=== PATIENT | female | born 1970 | race Hispanic/Latino ===

== ENCOUNTER 2016-11-26 20:47 | Observation (INO) | payer OTHER ==
[~2016-11-26] VITALS: Ht 144.8 cm; Wt 56.0 kg
[~2016-11-26 20:47] MED LIST: AMLO10TA3 PO; AMOX500T2 PO; CLR500T PO; HYDR-3797 PO; METO25TA6 PO; PANT40TA3 PO; PRAZ2CAP2 PO; PROM25TA14 PO; QUET25TA73 PO
[2016-11-26 20:59] VITALS: BP 157/100; PULSE 88; RESP 15; O2SAT 96
--- NOTE | 2016-11-26 22:28 | ED.REPORT ---
HPI-NVD Date of Service Nov 26, 2016 ED Provider: Vinh Souza MD Pt is a 46 y/o female with a history of bipolar disorder and recent hospital admission for gastritis with positive EGD for H. pylori who presents to the ED due to nausea, vomiting, and abdominal pain for the past several hours. Pt is accompanied by who gives most of the PMHx. Pt is withdrawn and curled up in a ball on the gurney Pt c/o associated subjective fever, chills, diaphoresis, diarrhea, and nausea. She reports having similar symptoms to when she was recently admitted to [facility]. Patient was treated with triple therapy for H. Pylori on discharge and took all medications as prescribed. She took Promethazine for nausea prior to arrival, with no improvement of symptoms. Nursing Notes Stated Complaint: VOMITING Chief Complaint: General Complaint Nursing Notes Reviewed: Yes (Valutao not reconciled) Allergies: Coded Allergies: hydrocodone (Verified Allergy, Intermediate, itch, 11/26/16) Scheduled Amlodipine (Amlodipine) 10 Mg Tablet 10 MG PO DAILY Amoxicillin (Amoxicillin) 500 Mg Tablet 1,000 MG PO BID Clarithromycin (Biaxin) 500 Mg Tablet 500 MG PO BID Metoprolol Tartrate (Metoprolol Tartrate) 25 Mg Tablet 50 MG PO BID Pantoprazole DR (Pantoprazole DR) 40 Mg Tablet.dr 40 MG PO BID Prazosin (Prazosin) 2 Mg Capsule 2 MG PO HS Quetiapine Fumarate (Quetiapine Fumarate) 25 Mg Tablet 25 MG PO BID Scheduled PRN Hydroxyzine Pamoate (HydrOXYzine Pamoate) 25 Mg Capsule 25 MG PO TID PRN PRN For Pain Promethazine (Promethazine) 25 Mg Tablet 25 MG PO q6 hours PRN PRN For Nausea General Time Seen by MD: 22:22 Chief Complaint Vomiting Hx Obtained From: Patient, Spouse Arrived By: Walk-in Onset Occurred: 1 - 4 hours ago Symptom Duration: Since onset Severity: Current: Mild Severity: Maximum: Mild Recent Healthcare: Recent hospitalization Past Medical History Past Medical History Admit for N/V 10/2016 -> mild gastritis/duodenitis, EGD results consistent with H. pylori. S/p treatment with triple therapy (clarithromycin, amoxicillin, Protonix) Bipolar /Schizophrenia Reports: Hypertension Past Surgical History EGD 10/2016 Smoking History Never Smoker Social History Alcohol Use: Denies alcohol use Drug Use: THC Other Social History: Good social support, , Local resident Ambulatory Status Independent Review of Systems Constitutional: Reports: Chills, Fever GI: Reports: Abdominal pain, Diarrhea, Nausea, Vomiting Skin: Reports Diaphoresis Complete sys rev & neg: except as marked. Physical Exam Initial Vital Signs Vital Signs (First) Date Time Temp Pulse Resp B/P Pulse Ox O2 Delivery O2 Flow Rate FiO2 11/26/16 20:59 36.8 88 15 157/100 96 Room Air Initial VS: Reviewed, Vital signs normal Head / Eyes: Atraumatic, Normocephalic, PERRL ENT: Mucous membranes moist, Conjunctiva normal, No scleral icterus Neck: Supple, Non-tender, Full range of motion Respiratory: Breath sounds normal, Clear to auscultation, No respiratory distress Cardiovascular: Regular rate & rhythm, Heart sounds normal, Intact distal pulses Extremities: Vascular intact, Neuro intact, No swelling, No tenderness Skin: Warm, Dry, No cyanosis Neurologic: Alert, Oriented, Nonfocal General/Constitutional: Awake, Alert Behavior: Positive: Withdrawn less than engaged curled up in a ball, doesn't want to talk much of hx is from spouse moans intermittently Abdomen: Soft, Non-tender Skin: Warm Color / Condition: Positive: Diaphoresis present (mildly) Re-Eval/Medical Decision Med Decision/Clinical Course This is a 46-year-old female who is admitted in October for intractable nausea and vomiting, underwent EGD at that time noted some gastropathy and mild duodenitis for PPI therapy was recommended but no other dangerous or definitive cause for the intractable nausea vomiting was identified at that time. (She was H Pyolori + and was treated with triple therapy) She reports she has been doing okay, but tonight had recurrence of the identical symptoms with intractable nausea and vomiting countless times there is a little bit of blood in her emesis here, mixed with clear yellow bile, she just recently had her consistent to have bleeding toothache causing the trace amount of blood ( arguing against a Anne-Alaniz). Since vitals normal's but when I go in the room she is cold up in a position, she appears fatigued and does not really engage in conversation. Mostly history is from the . Reports she has been compliant with the PPI therapy and is on a multitude of medications. Her abdomen is nontender, without clinical findings and necessitate emergent repeat imaging at this time. (She did undergo CT imaging previously last month for this which was negative) At this point an IV is being placed and lab tests ordered. An initial treatment with IV fluids and anti-emetics as indicated. The patient is being turned over to Dr. Palencia at change of shift pending results and re-eval. Source of Hx: Old records Re-Evaluation/Progress : Time of Eval: 23:36 Re-Evaluation/Progress Note: Confirmed that the patient finished triple therapy for H. Pylori. Informed patient of transfer of care to Dr. Palencia. Discharge & Departure Shift Change Sign-Out Patient Care Transferred: Yes Discussed Complaint(s): Yes Laboratory Evaluation: Ordered, not yet done Impression: Primary Impression: Nausea & vomiting Vomiting type: unspecified Vomiting Intractability: non-intractable Qualified Code: R11.2 - Nausea with vomiting, unspecified Discharge Condition All VS Reviewed: Yes Condition: Stable Referrals: Bolivar Norman MD (PCP) Care Transferred to: Dr. Palencia Care Transferred at: 00:00 Scribe Attestation Portion of this note were transcribed by Jud Mello and Srinivasan Freedman. I, Dr. Souza, personally performed the history, physcial exam, and medical decision- making: I reviewed and confirmed the accuracy for the information in the transcribed note. Signed by: ne Lopez, 11/26/16 [id number] Signed by: Ne Graves, 11/26/2016 [id number] copies to: Bolivar Norman MD, Matthew F MD Nov 26, 2016 22:28 SRINIVASAN FREEDMAN Nov 26, 2016 22:53 Jud Mello Nov 26, 2016 23:37
[2016-11-26] MEDS ORDERED: Ondansetron 2 mg/mL 2 mL Inj IVPUSH ONE (22:40)
[2016-11-26] MEDS: Promethazine Inj 25 MG in Dextrose 5%-Pha MIX 50 ML IV ONE (22:40)
[2016-11-26] MEDS ORDERED: 0.9% Sodium Chloride 1,000 ML IV ONE (22:40)
[2016-11-26] MEDS ORDERED: Promethazine 25 mg/mL Inj IM ONE (23:50)
[2016-11-27 01:04] LABS: BASOPHILS % (AUTO) 0.2 % (0-3); EOSINOPHILS % (AUTO) 0.1 % (0-5); MONOCYTES % (AUTO) 5.5 % (4-12); Mean Corpuscular Hemoglobin 26.8 pg (27.0-35.0); Mean Corpuscular Volume 79.7 fL (81-100); NEUTROPHILS % (AUTO) 86.2 % (40-74); Platelet Count 246 bil/L (150-400)
[2016-11-27 02:12] LABS: Lipase 24 U/L (13-60)
[2016-11-27] MEDS ORDERED: MetoCLOpramide 5 mg/mL 2 mL Inj IVPUSH ONE (02:20)
[2016-11-27] MEDS: 0.9% Sodium Chloride 1,000 ML IV ONE ×2 (02:27→02:54)
[2016-11-27] MEDS: Promethazine Inj 25 MG in Dextrose 5%-Pha MIX 50 ML IV ONE (02:53)
[2016-11-27 03:29] LABS: APPEARANCE,URINE CLEAR (CLEAR,HAZY); COLOR,URINE STRAW (YELLOW); OCCULT BLOOD,URINE SMALL (NEGATIVE); UROBILINOGEN,URINE NORMAL (NORMAL)
[2016-11-27] MEDS ORDERED: Haloperidol 5 mg/mL Inj IVPUSH ONE ×2 (05:25→08:45)
[2016-11-27] MEDS ORDERED: LORazepam 1 mg Tablet PO ONE (05:25)
[2016-11-27 08:18] VITALS: BP 141/80; PULSE 103; O2SAT 99
--- NOTE | 2016-11-27 08:32 | DRSVH ---
PROCEDURE: US ABDOMEN INDICATIONS: abd pain, elev WBC and transaminases TECHNIQUE: Real-time scanning was performed of the abdominal and retroperitoneal organs, with image documentatio n. COMPARISON: CT abdomen and pelvis 10/30/2016. FINDINGS: Liver length: 12.74 cm Gallbladder Wall Thickness: N./A. CHD: Not reported CBD: 5.90 mm Spleen length: 6.90 cm Right kidney length: 11.37 cm Left kidney length: 10.95 cm Aorta(Proximal): 2.04 cm Aorta(Mid): 1.63 cm Aorta(Distal): 1.46 cm RCIA: 7.60 mm LCIA: 1.02 cm Liver: Liver is normal in size and mildly hyperechoic in echotexture. Gallbladder: Gallbladder is not identified and is surgically absent. Biliary ducts: Intrahepatic bile ducts are non-dilated. Extrahepatic bile duct caliber is normal. Normal is 6-7 mm or less in diameter, or 10 mm or less post-cholecystectomy. Pancreas: Visualized portions of the pancreas are sonographically normal. Tail is obscured. Spleen: Spleen is normal in size and homogeneous in echotexture. Kidneys: Kidneys are normal in size and echotexture. No hydronephrosis or nephrolithiasis. No kellen d masses. There is a trace of subcapsular fluid on the right. Aorta: Visualized aorta is normal in caliber at less than 3 cm. Iliacs: Proximal common iliac arteries are normal in caliber at less than 2.5 cm. IVC: Intrahepatic inferior vena cava is patent. Miscellaneous: No free abdominal fluid. IMPRESSION: 1. Mild hepatic steatosis. 2. Gallbladder is surgically absent as shown on prior CT. 3. Common hepatic duct is not seen and the tail of pancreas is obscured. 4. Trace of subcapsular fluid in the right kidney is nonspecific and indeterminate for chronicity. Dictated by: Dino Espinoza M.D. on 11/27/2016 at 8:31 Approved by: Dino Espinoza M.D. on 11/27/2016 at 8:31
[2016-11-27] MEDS ORDERED: Alum-Mag Hydrox-Simeth 30 mL Suspension PO PRN (08:55)
[2016-11-27] MEDS ORDERED: OXYC1TAB24 PO (10:02)
[2016-11-27] MEDS ORDERED: IBUP200C PO (10:02)
[2016-11-27] MEDS ORDERED: DIPH25CA6 PO (10:02)
[2016-11-27 10:24] VITALS: BP 158/91; PULSE 106; RESP 16; O2SAT 99
--- NOTE | 2016-11-27 12:10 | NUR ---
[place] [facility] [place] 1030 [place] [facility] [place] Report received from Jessica DOTSON. NS started at 100ml/hr, patient quiet, awake to have one brief bout of nausea with emesis (dark tea color 100mls) and is now back resting quietly in bed. Patient denies pain, and shortness of breath. Patient to be NPO, med rec and admit completed by admit nurse Mouna DOTSON. Patient oriented to room and hospital polices/services. Addendum: 11/27/16 at 1630 by RAMONITA GENTILE RN Patient has had three more bouts of emesis total volume 200mls dark green/brown fluid, Zofran given and Toroidal for abdominal pain. Patient is resting quietly in bed now. Washcloth and warm blankets given. Addendum: 11/27/16 at 1643 by RAMONITA GENTILE RN WBC 16.1, patient report to taking hydrocodone for tooth repair, may be cause of n/v. Allergy to this medicine.
[2016-11-27] MEDS: 0.9% Sodium Chloride 1,000 ML IV SCH ×2 (12:24→19:55)
[2016-11-27] MEDS ORDERED: MetoCLOpramide 5 mg/mL 2 mL Inj IVPUSH PRN (14:25)
[2016-11-27] MEDS ORDERED: Polyethylene Glycol (PEG) 17 Gm Powder PO PRN (14:25)
[2016-11-27] MEDS: Ondansetron 2 mg/mL 2 mL Inj IVPUSH PRN ×2 (15:47→19:55)
--- NOTE | 2016-11-27 16:57 | NUR ---
TOOK OVER PATIENT CARE 8031
[2016-11-27] MEDS ORDERED: hydrOXYzine Pamoate 25 mg Capsule PO PRN (18:05)
[2016-11-27] MEDS ORDERED: diphenhydrAMINE 25 mg Capsule PO PRN (18:05)
--- NOTE | 2016-11-27 18:09 | PCM.HPMED ---
Subjective Date of Service Nov 27, 2016 Primary Provider: Admitting Physician: Kameron Anthony DO Primary Care Physician: Bolivar Norman MD Attending Physician: Kameron Anthony DO Chief Complaint: Nausea vomiting History of Present Illness: This is a 46-year-old patient well-known to me from previous admission. She has a recent history of H. pylori, and a history of bipolar/schizophrenia. She presented to the emergency room yesterday with nausea vomiting and spent a prolonged period in the ER where her symptoms continued. Due to intractable nausea, the hospitalists were contacted for admission. She had recently had some dental work done with teeth being pulled and was placed on oxycodone. Shortly after taking the oxycodone she started experiencing nausea vomiting which was unrelenting so she presented to the emergency room for evaluation. She had taken promethazine at home. She had a previous admission for the same, eventually she had an EGD which showed gastritis and she was diagnosed with H. pylori. This was treated and her symptoms improved. She has been taking her medications as prescribed and was doing well until the last day. She states that she has had ongoing left flank pain where she has been diagnosed with a nonobstructing renal stone. She has not been taking any pain medications for this. She has had some minor abdominal pain, no diarrhea or constipation. No fevers or chills, no headaches or dizziness cough congestion, chest pain or shortness of breath. She does state that within a few days of discharge she did return to smoking marijuana. We had previously discussed marijuana as a cause of cyclic vomiting. Review of Systems: As in history of present illness otherwise negative Allergies Coded Allergies: hydrocodone (Verified Allergy, Severe, Hives, 11/27/16) Home Medications Amlodipine (Amlodipine) 10 Mg Tablet 10 MG PO DAILY Amoxicillin (Amoxicillin) 500 Mg Tablet 1,000 MG PO BID Clarithromycin (Biaxin) 500 Mg Tablet 500 MG PO BID Metoprolol Tartrate (Metoprolol Tartrate) 25 Mg Tablet 50 MG PO BID Pantoprazole DR (Pantoprazole DR) 40 Mg Tablet.dr 40 MG PO BID Prazosin (Prazosin) 2 Mg Capsule 2 MG PO HS Quetiapine Fumarate (Quetiapine Fumarate) 25 Mg Tablet 25 MG PO BID Scheduled PRN Hydroxyzine Pamoate (HydrOXYzine Pamoate) 25 Mg Capsule 25 MG PO TID PRN PRN For Pain Promethazine (Promethazine) 25 Mg Tablet 25 MG PO q6 hours PRN PRN For Nausea PMH Gastritis, H. pylori Bipolar Schizophrenia Surgical History Cholecystectomy, appendectomy, EGD 1 month prior Family History Father with diabetes, otherwise noncontributory Social History Hx Alcohol Use: No Hx Substance Use: Yes (Marijuana) Smoking Status: Never Smoker Living Arrangement: Homeless Exam Vital Signs Vital Sign - Last Date Time Temp Pulse Resp B/P Pulse Ox O2 Delivery O2 Flow Rate FiO2 11/27/16 10:24 36.8 106 16 158/91 99 Room Air Intake and Output 11/26/16 11/26/16 11/27/16 Cumulative From/Thru 15:00 23:00 07:00 11/26/16 20:59 - 11/27/16 02:28 Intake Total 2000 ml 2000 ml Balance 2000 ml 2000 ml Intake IV Total 2000 ml 2000 ml Exam General: Alert, Oriented X3, mild to moderate distress. Actively vomiting during my exam Head: Normocephalic, atraumatic Eyes: JEET, EOMI, no scleral Icterus Oropharynx: pink moist oral mucosa Neck: supple, trachea midline, no adenopathy Chest: clear to auscultation B/L, no wheezing rales or rhonchi Heart: Regular rate and rhythm. Normal S1, S2, no murmurs noted Abdomen: soft, mild tenderness to palpation. Bowel sounds are normoactive. No guarding or rebound. Extremities: no cyanosis, clubbing or edema. No acute joint inflammation. Skin: no acute rashes or lesions noted Neuro: Cranial nerves II-XII intact, no focal findings. Psych: Anxious over her condition. Lab and Diagnostics Result Diagram: 11/27/16 0005 11/27/16 0005 X-Rays, CTs and MRIs Ultrasound abdomen 11/27/2016 IMPRESSION: 1. Mild hepatic steatosis. 2. Gallbladder is surgically absent as shown on prior CT. 3. Common hepatic duct is not seen and the tail of pancreas is obscured. 4. Trace of subcapsular fluid in the right kidney is nonspecific and indeterminate for chronicity. Assessment & Plan This is a 46-year-old female with a past medical history of bipolar, schizophrenia. Recent diagnosis of H. pylori gastritis currently being treated. She apparently is likely having a bad reaction to oxycodone which correlates with the timing of the onset of symptoms. She also may have cyclic vomiting due to marijuana use. Intractable nausea and vomiting: -Appears to be secondary to adverse reaction to oxycodone -May also have cyclic vomiting due to continued marijuana use or ongoing gastritis, though thought less likely. -Continue Zofran when necessary, she has responded well in the past to Reglan. I will order this as well. -Ativan if the above interventions are unsuccessful. -Supportive care, IV fluids -She received Haldol, Benadryl, Zofran in the emergency room Gastritis/H. pylori: -Currently undergoing treatment, believe her antibiotic should be finished. Continue Protonix Bipolar/schizophrenia: -Continue Seroquel Hypertension: -Continue metoprolol, prazosin, amlodipine Nonobstructing renal stone: Present on admission -Pain control with Toradol, avoid narcotics -Ultrasound shows no obstructing stone, no hydronephrosis. CODE STATUS: Full code DVT prophylaxis: SCDs Disposition: Admit to observation, discharge in 1-2 days pending hospital course. Time spent 60 minutes spent admitting this patient Kameron Anthony DO Nov 27, 2016 14:39
[2016-11-27 20:06] VITALS: BP 130/87; PULSE 88; RESP 20; O2SAT 98
--- NOTE | 2016-11-27 22:05 | NUR ---
GI Pt had some nausea earlier this evening. Given IV zofran per MD order Pt able to tolerate PO meds and sips of sprite. Will cont to monitor
[2016-11-28 03:53] VITALS: BP 123/82; PULSE 71; RESP 20; O2SAT 96
[2016-11-28] MEDS: 0.9% Sodium Chloride 1,000 ML IV SCH ×2 (04:20→14:55)
[2016-11-28] MEDS ORDERED: Pantoprazole 4 mg/mL 10 mL Inj IVPUSH SCH (07:30)
[2016-11-28] MEDS: Ondansetron 2 mg/mL 2 mL Inj IVPUSH PRN (08:21)
[2016-11-28 08:53] VITALS: BP 143/96; PULSE 71; RESP 20; O2SAT 99
[2016-11-28 13:18] VITALS: BP 129/86; PULSE 62; RESP 20; O2SAT 96
[2016-11-28 13:29] LABS: BASOPHILS % (AUTO) 0.3 % (0-3); EOSINOPHILS % (AUTO) 0.9 % (0-5); MONOCYTES % (AUTO) 8.7 % (4-12); Mean Corpuscular Hemoglobin 26.7 pg (27.0-35.0); Mean Corpuscular Volume 80.3 fL (81-100); NEUTROPHILS % (AUTO) 69.3 % (40-74); Platelet Count 214 bil/L (150-400)
--- NOTE | 2016-11-28 14:14 | NUR ---
Data & Assessment: EMR reviewed. Patient is a is a 46y/o female that admitted for Intractable Vomiting. Patients insurance is [employer]. Patients primary care physician is Dr. Bolivar Norman. Patients readmission score is 5. Patient lived in [place] independently prior to admission. Patient is currently standby assist in the room. Patient will discharge home when medically stable. Patient does not have any discharge needs identified at this time. SW will continue to follow. Plan: Patient will discharge home when medically stable. Patient does not have discharge needs identified at this time. SW will continue to follow. Hui Sorenson, [place], [place]
[2016-11-28] MEDS ORDERED: PROM25TA14 PO (14:21)
--- NOTE | 2016-11-28 14:23 | PCM.DIMED ---
Discharge Instructions Date of Service Nov 28, 2016 Dates of Hospitalization Nov 27, 2016 at 08:46 Discharge Diagnosis Discharge Diagnosis intractable nausea and vomiting - improved. Adverse medication reaction to oxycodone. Diet No restrictions Activity No restrictions Call your provider Fever or Chills, Shortness of breath, Chest pain, Vomitting, Weakness ( unilateral) Patient Instructions Follow-up with PCP in: 1 week Kameron Anthony DO Nov 28, 2016 14:23
--- NOTE | 2016-11-28 15:52 | NUR ---
Discharge Patient left floor at 1540. All d/c information discussed and understood, including medications and follow up appointments. Patient given prescription for promethazine. IV d/c'd intact. All belongings left with patient.
--- NOTE | 2016-11-28 21:36 | PCM.DC.MED ---
Discharge Summary Date of Service Nov 28, 2016 Dates of Hospitalization Date of Hospital Admission Nov 27, 2016 at 08:46 Date of Discharge: Nov 28, 2016 Providers: Admitting Physician: Rachell Anthony DO Primary Care Physician: Bolivar Norman MD Attending Physician: Rachell Anthony DO Diagnosis at Time of Discharge Diagnosis at Time of Discharge intractable nausea and vomiting - improved. Adverse medication reaction to oxycodone. Procedures XRay, CTs & MRIs Ultrasound abdomen 11/27/2016 IMPRESSION: 1. Mild hepatic steatosis. 2. Gallbladder is surgically absent as shown on prior CT. 3. Common hepatic duct is not seen and the tail of pancreas is obscured. 4. Trace of subcapsular fluid in the right kidney is nonspecific and indeterminate for chronicity. Brief History This is a 46-year-old patient well-known to me from previous admission. She has a recent history of H. pylori, and a history of bipolar/schizophrenia. She presented to the emergency room yesterday with nausea vomiting and spent a prolonged period in the ER where her symptoms continued. Due to intractable nausea, the hospitalists were contacted for admission. She had recently had some dental work done with teeth being pulled and was placed on oxycodone. Shortly after taking the oxycodone she started experiencing nausea vomiting which was unrelenting so she presented to the emergency room for evaluation. She had taken promethazine at home. She had a previous admission for the same, eventually she had an EGD which showed gastritis and she was diagnosed with H. pylori. This was treated and her symptoms improved. She has been taking her medications as prescribed and was doing well until the last day. She states that she has had ongoing left flank pain where she has been diagnosed with a nonobstructing renal stone. She has not been taking any pain medications for this. She has had some minor abdominal pain, no diarrhea or constipation. No fevers or chills, no headaches or dizziness cough congestion, chest pain or shortness of breath. She does state that within a few days of discharge she did return to smoking marijuana. We had previously discussed marijuana as a cause of cyclic vomiting. Hospital Course This is a 46-year-old female with a past medical history of bipolar, schizophrenia. Recent diagnosis of H. pylori gastritis currently being treated. She apparently is likely having a bad reaction to oxycodone which correlates with the timing of the onset of symptoms. She also may have cyclic vomiting due to marijuana use. She was given IV fluids and antiemetics overnight. Her symptoms were most consistent with oxycodone intolerance. The following day she was feeling significantly better, her diet was advanced and she tolerated this well. She was discharged home in stable condition and instructed to follow-up with her primary care physician within one week, sooner if her condition worsens in anyway. Intractable nausea and vomiting: -Appears to be secondary to adverse reaction to oxycodone -May also have cyclic vomiting due to continued marijuana use or ongoing gastritis, though thought less likely. -Continue Zofran when necessary, she has responded well in the past to Reglan. I will order this as well. -Ativan if the above interventions are unsuccessful. -Supportive care, IV fluids -She received Haldol, Benadryl, Zofran in the emergency room Gastritis/H. pylori: -Currently undergoing treatment, believe her antibiotic should be finished. Continue Protonix Bipolar/schizophrenia: -Continue Seroquel Hypertension: -Continue metoprolol, prazosin, amlodipine Nonobstructing renal stone: Present on admission -Pain control with Toradol, avoid narcotics -Ultrasound shows no obstructing stone, no hydronephrosis. CODE STATUS: Full code DVT prophylaxis: SCDs Disposition: Admit to observation, discharge in 1-2 days pending hospital course. Exam Vital Signs (Last) Date Time Temp Pulse Resp B/P Pulse Ox O2 Delivery O2 Flow Rate FiO2 11/28/16 13:18 36.5 62 20 129/86 96 Room Air Test 11/26/16 00:00 11/27/16 00:05 11/28/16 13:15 Urine Color Straw (YELLOW) Urine Appearance Clear (CLEAR,HAZY) Urine pH 8.0 (5.0-8.0) Urine Specific Tyler 1.015 (1.003-1.035) Urine Protein Negativemg/dL (NEG,TRACE) Urine Glucose (UA) 250mg/dL (NEGATIVE) Urine Ketones 15mg/dL (NEGATIVE) Urine Occult Blood Small (NEGATIVE) Urine Nitrite Negative (NEGATIVE) Urine Bilirubin Negative (NEGATIVE) Urine Urobilinogen Normalmg/dL (NORMAL) Urine Leukocyte Esterase Negative (NEGATIVE) Urine RBC 0-2/hpf (0-2) Urine WBC 0-5/hpf (0-5) Urine Epithelial Cells Few/hpf (NONE-MOD) Urine Crystals None seen (NONE SEEN) Urine Bacteria Few/hpf (NONE-FEW) Urine Hyaline Casts None/lpf (NONE) Urine Granular Casts None seen (NONE SEEN) Urine Waxy Casts None seen (NONE SEEN) Urine Red Blood Cell Casts None seen (NONE SEEN) Urine White Blood Cell Casts None seen (NONE SEEN) Urine Mucus None seen (None Seen) Urine Trichomonas None seen (NONE SEEN) Urine Yeast None (NONE SEEN) Urinalysis Comment None Urine Culture Reflexed Not indicated Total Bilirubin 0.4mg/dL (0.0-1.2) Aspartate Amino Transf (AST/SGOT) 168U/L (0-50) Alanine Aminotransferase (ALT/SGPT) 99U/L (0-32) Alkaline Phosphatase 103U/L (25-150) Total Protein 8.7g/dL (6.4-8.4) Albumin 5.4g/dL (3.4-5.0) Lipase 24U/L (13-60) Human Chorionic Gonadotropin, Qual Negative (Negative) White Blood Count 10.4th/mm3 (3.8-10.1) Red Blood Count 4.57mil/mm3 (3.90-5.20) Hemoglobin 12.2g/dL (12.0-15.6) Hematocrit 36.7% (35.0-46.0) Mean Corpuscular Volume 80.3fL (81-100) Mean Corpuscular Hemoglobin 26.7pg (27.0-35.0) Mean Corpuscular Hemoglobin Concent 33.2% (32.0-37.0) Red Cell Distribution Width 14.8% (12.3-15.4) Platelet Count 214bil/L (150-400) Neutrophils (%) (Auto) 69.3% (40-74) Lymphocytes (%) (Auto) 20.6% (14-46) Monocytes (%) (Auto) 8.7% (4-12) Eosinophils (%) (Auto) 0.9% (0-5) Basophils (%) (Auto) 0.3% (0-3) Sodium Level 141mEq/L (134-144) Potassium Level 3.3mEq/L (3.5-5.2) Chloride Level 108mEq/L (97-108) Carbon Dioxide Level 21mmol/L (18-29) Blood Urea Nitrogen 15mg/dL (6-24) Creatinine 0.56mg/dL (0.57-1.00) Estimat Glomerular Filtration Rate 166mL/min (>59) Glucose Level 152mg/dL (60-99) Calcium Level 8.2mg/dL (8.5-10.1) Discharge Medications Discharge Medications Amlodipine (Amlodipine) 10 Mg Tablet 10 MG PO DAILY (Reported) Metoprolol Tartrate (Metoprolol Tartrate) 25 Mg Tablet 50 MG PO BID Prescribed by: RACHELL ANTHONY DO Pantoprazole DR (Pantoprazole DR) 40 Mg Tablet.dr 40 MG PO BID Prescribed by: RACHELL ANTHONY DO Prazosin (Prazosin) 2 Mg Capsule 2 MG PO HS (Reported) Quetiapine Fumarate (Quetiapine Fumarate) 25 Mg Tablet 25 MG PO BID (Reported) As needed Hydroxyzine Pamoate (HydrOXYzine Pamoate) 25 Mg Capsule 25 MG PO TID PRN PRN For Pain (Reported) Ibuprofen (Ibuprofen) 200 Mg Capsule Unknown Dose PO PRN For Pain (Reported) Promethazine (Promethazine) 25 Mg Tablet 12.5-25 MG PO Q6H PRN PRN For Nausea Prescribed by: RACHELL ANTHONY DO diphenhydrAMINE HCl (Benadryl) 25 Mg Capsule 25 MG PO Q6H PRN PRN For Itching ( Reported) Followup Plan Discharge Diet: No restrictions Discharge Activity: No restrictions Follow-up with PCP in: 1 week Time spent 35 minutes spent discharging this patient Rachell Anthony DO Nov 28, 2016 21:36
== END 2016-11-28 15:40 | disposition home or self-care (01) ==
LOC: SED 20:47 → MOC 11-27 08:46 → UNDOADMOB 11-27 08:46 → MOC 11-27 10:19
PROVIDERS: ADMIT Family Medicine; ATTEND Family Medicine
DX: R11.2 Nausea with vomiting, unspecified (principal); T40.2X5A Adverse effect of other opioids, initial encounter; F31.9 Bipolar disorder, unspecified; F20.9 Schizophrenia, unspecified; K29.70 Gastritis, unspecified, without bleeding; B96.81 Helicobacter pylori [H. pylori] as the cause of diseases classified elsewhere; I10 Essential (primary) hypertension; Z87.442 Personal history of urinary calculi
CPT/HCPCS: 36415; 76700; 80048; 80053; 81000; 81025; 83690; 84703; 85025; 96361; 96372; 96374; 96375; 96376; 99285; G0378; J1200; J1630; J2060; J2405; J2765; J7030

== ENCOUNTER 2017-03-07 16:27 | Emergency (ER) | payer OTHER ==
[~2017-03-07] VITALS: Ht 144.8 cm; Wt 61.8 kg
[~2017-03-07 16:27] MED LIST changes: -AMOX500T2 PO; -CLR500T PO; +DIPH25CA6 PO; +IBUP200C PO
--- NOTE | 2017-03-07 16:49 | ED.REPORT ---
HPI-NVD Date of Service Mar 07, 2017 ED Provider: Vinh Souza MD Patient is a 46 year old female with a history of schizophrenia, hypertension, H. pylori gastritis, and frequent marijuana use who presents with nausea and vomiting that began yesterday. Patient first had an episode of vomiting yesterday, which improved. However this morning she had woke up with excessive sweating, nausea and vomiting. She describes her vomit as green, with 4x episodes today. Family members state that a warm water bath relieves her symptoms. She has been into the ED previously for these symptoms and was recent admitted for intractable nausea and vomiting. Her symptoms are similar to these previous episodes. She denies any associated fever. Patient recently had her psychiatric medications adjusted but denies any other medication changes. Nursing Notes Stated Complaint: NAUSEA,VOMITTING SINCE 5AM Nursing Notes Reviewed: Yes Allergies: Coded Allergies: hydrocodone (Verified Allergy, Severe, Hives, 03/07/17) acetaminophen (Verified Allergy, Mild, Hives, 03/07/17) hydrocodone bitartrate (Verified Allergy, Mild, Hives, 03/07/17) Scheduled Amlodipine (Amlodipine) 10 Mg Tablet 10 MG PO DAILY Metoprolol Tartrate (Metoprolol Tartrate) 25 Mg Tablet 50 MG PO BID Pantoprazole DR (Pantoprazole DR) 40 Mg Tablet.dr 40 MG PO BID Prazosin (Prazosin) 2 Mg Capsule 2 MG PO HS Quetiapine Fumarate (Quetiapine Fumarate) 25 Mg Tablet 25 MG PO BID Scheduled PRN Hydroxyzine Pamoate (HydrOXYzine Pamoate) 25 Mg Capsule 25 MG PO TID PRN PRN For Pain Ibuprofen (Ibuprofen) 200 Mg Capsule Unknown Dose PO PRN For Pain Ondansetron ODT (Ondansetron ODT) 8 Mg Tab.rapdis 8 MG PO Q4H PRN PRN For Nausea Promethazine (Promethazine) 25 Mg Tablet 12.5-25 MG PO Q6H PRN PRN For Nausea Promethazine (Promethazine) 25 Mg Tablet 25 MG PO Q4H PRN PRN For Nausea Promethazine Supp (Promethazine Supp) 25 Mg Supp 25 MG RECTAL Q8H PRN PRN For Nausea diphenhydrAMINE HCl (Benadryl) 25 Mg Capsule 25 MG PO Q6H PRN PRN For Itching General Time Seen by : 16:42 Chief Complaint Vomiting Hx Obtained From: Patient, Spouse Arrived By: Walk-in Onset Occurred: Yesterday Symptom Duration: Since onset Quality: Painful Severity: Current: Moderate Severity: Maximum: Moderate Associated with: Denies: Constipation, Fever Past Medical History Past Medical History Admit for N/V 11/2016 Admit for N/V 10/2016 -> mild gastritis/duodenitis, EGD results consistent with H. pylori. S/p treatment with triple therapy (clarithromycin, amoxicillin, Protonix) Bipolar /Schizophrenia frquent marijuana use Reports: Hypertension Past Surgical History EGD 10/2016 Smoking History Unknown if Ever Smoker Social History Alcohol Use: Denies alcohol use Drug Use: THC Other Social History: Good social support, , Local resident Ambulatory Status Independent Review of Systems Constitutional: Denies: Fever Ears / Nose / Throat: Reports: Nasal congestion GI: Reports: Abdominal pain, Nausea, Vomiting Skin: Reports Diaphoresis, Denies Rash Neurologic: Reports: Change LOC Complete sys rev & neg: except as marked. Physical Exam Initial Vital Signs Vital Signs (First) Date Time Temp Pulse Resp B/P Pulse Ox O2 Delivery O2 Flow Rate FiO2 03/07/17 16:52 36.7 118 20 138/82 100 Room Air Initial VS: Reviewed, Unavailable (no vitals on chart, ordered) Head / Eyes: Atraumatic, Normocephalic, PERRL ENT: Mucous membranes moist, Conjunctiva normal, No scleral icterus Neck: Supple, Full range of motion Extremities: Vascular intact, Neuro intact, No swelling, No tenderness Skin: Warm, Dry Neurologic: Alert, Oriented Psychiatric: Mood/affect normal, Behavior normal General/Constitutional: Awake, Alert, Well developed, Well nourished Patient appears fatigued, holding emesis basin dramatic Abdomen: Soft, Non-tender, No guarding, No rebound Respiratory / Chest: Breath sounds NL, Breath sounds = bilat, No respiratory distress, No rales, No rhonchi, No wheezing Cardiovascular: Heart rate NL, Regular rhythm, Heart sounds NL, Peripheral circulation NL Heart Rate / Rhythm: Negative: Tachycardia Interpretation & Diagnostics Interpretation & Diagnostics: Urine Tox Screen: Positive for marijuana, all else negative Lab Results Interpretation Result Diagram: 03/07/17 1745 03/07/17 1810 Test 03/07/17 17:45 03/07/17 18:10 03/07/17 19:15 White Blood Count 20.2th/mm3 (3.8-10.1) Red Blood Count 5.17mil/mm3 (3.90-5.20) Hemoglobin 13.9g/dL (12.0-15.6) Hematocrit 41.5% (35.0-46.0) Mean Corpuscular Volume 80.3fL (81-100) Mean Corpuscular Hemoglobin 26.9pg (27.0-35.0) Mean Corpuscular Hemoglobin Concent 33.5% (32.0-37.0) Red Cell Distribution Width 14.6% (12.3-15.4) Platelet Count 340bil/L (150-400) Neutrophils (%) (Auto) 91.2% (40-74) Lymphocytes (%) (Auto) 4.6% (14-46) Monocytes (%) (Auto) 3.4% (4-12) Eosinophils (%) (Auto) 0.3% (0-5) Basophils (%) (Auto) 0.1% (0-3) Sodium Level 137mEq/L (134-144) Potassium Level 3.8mEq/L (3.5-5.2) Chloride Level 99mEq/L (97-108) Carbon Dioxide Level 18mmol/L (18-29) Blood Urea Nitrogen 12mg/dL (6-24) Creatinine 0.56mg/dL (0.57-1.00) Estimat Glomerular Filtration Rate 166mL/min (>59) Glucose Level 178mg/dL (60-99) Calcium Level 9.4mg/dL (8.5-10.1) Magnesium Level 1.7mg/dL (1.6-2.6) Total Bilirubin 0.4mg/dL (0.0-1.2) Aspartate Amino Transf (AST/SGOT) 18U/L (0-50) Alanine Aminotransferase (ALT/SGPT) 15U/L (0-32) Alkaline Phosphatase 63U/L (25-150) Total Protein 8.2g/dL (6.4-8.4) Albumin 4.7g/dL (3.4-5.0) Lipase 25U/L (13-60) Hold Nuñez Top Tube Received (Received) Hold Urine Received (Received) Lab Results Interpretation: CBC revealed leukocytosis-old records indicate prior leukocytosis of white count up to 16 17,000 with previous episodes, nonspecific-patient's symptoms are now much improved, her abdomen soft nontender without clinical findings of an acute surgical abdomen CMP normal negative Procedures Peripheral / EJ IV Start Peripheral / EJ IV Start: Lidocaine Time: 18:05 Procedure Performed by: ED physician Type of Catheter: Single lumen Size of Catheter: #20 IV Site: External jugular right Skin Preparation Agent: Hibiclens - Chlorhexidine Secured with: Tape Re-Eval/Medical Decision Med Decision/Clinical Course This is a 46-year-old female presents complaining of another episode of terrible vomiting, intermittent diaphoresis, and symptoms she states are identical to several prior episodes of intractable nausea and vomiting. she has had 2 admissions over the past 6 months, last which was in November. She is daily, heavy, marijuana user. Additionally she reports that taking a hot shower hot bath offer these symptoms, and essentially describes features highly suspicious for cannabis hyperemesis syndrome, and my concerns about this were explained to her. She received initial IM dose of medication for nausea, as multiple attempts at IVs were unsuccessful. Ultimately I placed an external jugular IV in her right EJ. Patient received Compazine, Benadryl, ondansetron, and IV fluids-and symptoms resolved. The patient does have severe leukocytosis, but this is happened previously. He does not have clinical features or markers of an acute abdomen, or infectious etiology. With medications her symptoms resolved, and er serial abdominal exams demonstrated no clinical findings of peritonitis. She is afebrile. She is slept and then recovered, she has been able to pass an oral challenge and has shown nothing but clinical improvement over multi hour ED stay, and there were no findings overall of acute peritonitis, a surgical abdomen, or a dangerous/infectious etiology. She reports symptoms have been identical to previous visits, now they are resolved. Given the clinical context, I am not finding indication for emergent imaging. The patient is being discharged with instructions to stop using marijuana, along with a prescription for ondansetron, promethazine oral and suppository medications. She is discharged much improved condition. Source of Hx: Old records Re-Evaluation/Progress #1: Time of Eval: 17:57 Patient Status: Condition improved Re-Evaluation/Progress Note: Patient was attempting to sleep upon re-check Re-Evaluation/Progress #2: Time of Eval: 20:00 Patient Status: Condition resolved Re-Evaluation/Progress Note: Much improved. Sleeping comfortably. Will try trial of oral fluids Re-Evaluation/Progress #3: Time of Eval: 21:21 Patient Status: Condition improved Re-Evaluation/Progress Note: Patient understands and agrees with the plan to be discharged home. Discharge instructions and follow-up discussed. All questions were addressed. Return to the ED warnings given. Differential Diagnosis: Positive: Dehydration, Negative: Appendicitis, Boerhaave syndrome, Bowel obstruction, C. diff colitis, Cholecystitis, Diabetes mellitus, Drug overdose, Drug-med reaction, Anne-Alaniz syndrome, Meniere's disease, Migraine headache, Pancreatitis, Peptic ulcer disease, , Ulcerative colitis Counseled Regarding: Diagnosis, Lab results, Need for follow-up, When/why to return to ED Discharge & Departure Impression: Primary Impression: Nausea & vomiting Vomiting type: unspecified Vomiting Intractability: non-intractable Qualified Code: R11.2 - Nausea with vomiting, unspecified Additional Impression: Cannabinoid hyperemesis syndrome Disposition: Home Discharge Condition All VS Reviewed: Yes Condition: Stable Additional Instructions: 1. I am suspicious your episodes of nausea and vomiting may be related to your heavy marijuana use ("cannabinoid hyperemesis syndrome"). Stopping using the marijuana can result in complete resolution of vomiting episodes. 2. Rest 3. Drink small, frequent sips of fluids. 4. Take ondansetron 8mg (let dissolve under tongue) up to every 4 hours as needed for nausea. 5. You can also take promethazine 25mg up to every 4-6 hours for nausea as well. 6. Follow up with Dr. Norman. Call for an appointment. Referrals: Bolivar Norman MD (PCP) Scribe Attestation Portions of this note were transcribed by Girish Woody and Jud Mello. I, Dr. Souza personally performed the history, physical exam and medical decision -making; I reviewed and confirmed the accuracy of the information in the transcribed note. Signed by: Girish Woody and Jud Mello, Scribe, 02/28/2017 and 2123. copies to: Bolivar Norman MD, Matthew F MD Mar 07, 2017 16:49 Girish Woody Mar 07, 2017 17:23 Jud Mello Mar 07, 2017 21:26
[2017-03-07] MEDS ORDERED: ProchlorPERazine 5 mg/mL 2 mL Inj IVPUSH ONE (16:50)
[2017-03-07] MEDS ORDERED: Ondansetron 2 mg/mL 2 mL Inj IVPUSH ONE (16:50)
[2017-03-07] MEDS ORDERED: 0.9% Sodium Chloride 1,000 ML IV ONE ×2 (16:50→19:35)
[2017-03-07 16:52] VITALS: BP 138/82; PULSE 118; RESP 20; O2SAT 100
[2017-03-07] MEDS ORDERED: ProchlorPERazine 5 mg/mL 2 mL Inj IM ONE (17:20)
[2017-03-07] MEDS ORDERED: Ondansetron 8 mg ODT Tablet PO ONE (17:45)
[2017-03-07 17:51] LABS: BASOPHILS % (AUTO) 0.1 % (0-3); EOSINOPHILS % (AUTO) 0.3 % (0-5); MONOCYTES % (AUTO) 3.4 % (4-12); Mean Corpuscular Hemoglobin 26.9 pg (27.0-35.0); Mean Corpuscular Volume 80.3 fL (81-100); NEUTROPHILS % (AUTO) 91.2 % (40-74); Platelet Count 340 bil/L (150-400)
[2017-03-07 18:46] LABS: Magnesium 1.7 mg/dL (1.6-2.6)
[2017-03-07] MEDS ORDERED: _Ondansetron ODT 4 mg Tablet PO PRN (20:35)
[2017-03-07] MEDS ORDERED: PROM25TA14 PO (20:40)
[2017-03-07] MEDS ORDERED: ONDA8TAB10 PO (20:40)
[2017-03-07] MEDS ORDERED: PROM25SU47 RECTAL (20:40)
[2017-03-07 21:18] VITALS: BP 134/92; PULSE 111; RESP 18; O2SAT 98
== END 2017-03-07 21:19 | disposition home or self-care (01) ==
LOC: SED 16:27
DX: R11.2 Nausea with vomiting, unspecified (principal); F12.188 Cannabis abuse with other cannabis-induced disorder; I10 Essential (primary) hypertension; F31.9 Bipolar disorder, unspecified; F20.9 Schizophrenia, unspecified; Z88.8 Allergy status to other drugs, medicaments and biological substances
CPT/HCPCS: 36000; 36415; 80053; 81025; 83690; 83735; 85025; 96361; 96372; 96374; 99285; J0780; J1200; J2060; J7030

== ENCOUNTER 2017-03-29 08:19 | Emergency (ER) | payer OTHER ==
[~2017-03-29] VITALS: Ht 144.8 cm; Wt 61.8 kg
[~2017-03-29 08:19] MED LIST changes: +ONDA8TAB10 PO; +PROM25SU47 RECTAL
[2017-03-29 08:22] VITALS: BP 161/114; PULSE 123; RESP 18; O2SAT 100
--- NOTE | 2017-03-29 08:30 | ED.REPORT ---
HPI-General Illness Date of Service March 29, 2017 ED Provider: Alber Nunez DO 46 year old female who is a regular THC user presents to the ER accompanied by her complaining of four days of nausea and vomiting. She suspects that symptoms are due to something that she ate the day of onset. Associated symptoms include abdominal pain and diaphoresis. Patient denies any blood in her stool or emesis. She was seen here in the department last month for similar. Last marijuana use was last week. Nursing Notes Stated Complaint: VOMITING,FEVER Chief Complaint: Female Abdominal Pain Nursing Notes Reviewed: Yes Allergies: Coded Allergies: hydrocodone (Verified Allergy, Severe, Hives, 03/07/17) acetaminophen (Verified Allergy, Mild, Hives, 03/07/17) hydrocodone bitartrate (Verified Allergy, Mild, Hives, 03/07/17) Scheduled Amlodipine (Amlodipine) 10 Mg Tablet 10 MG PO DAILY Metoprolol Tartrate (Metoprolol Tartrate) 25 Mg Tablet 50 MG PO BID Pantoprazole DR (Pantoprazole DR) 40 Mg Tablet.dr 40 MG PO BID Prazosin (Prazosin) 2 Mg Capsule 2 MG PO HS Quetiapine Fumarate (Quetiapine Fumarate) 25 Mg Tablet 25 MG PO BID Scheduled PRN Hydroxyzine Pamoate (HydrOXYzine Pamoate) 25 Mg Capsule 25 MG PO TID PRN PRN For Pain Ibuprofen (Ibuprofen) 200 Mg Capsule Unknown Dose PO PRN For Pain Ondansetron ODT (Ondansetron ODT) 8 Mg Tab.rapdis 8 MG PO Q4H PRN PRN For Nausea Promethazine (Promethazine) 25 Mg Tablet 12.5-25 MG PO Q6H PRN PRN For Nausea Promethazine (Promethazine) 25 Mg Tablet 25 MG PO Q4H PRN PRN For Nausea Promethazine Supp (Promethazine Supp) 25 Mg Supp 25 MG RECTAL Q8H PRN PRN For Nausea Promethazine Supp (Promethazine Supp) 25 Mg Supp 25 MG RECTAL Q8H PRN PRN For Nausea/Vomiting diphenhydrAMINE HCl (Benadryl) 25 Mg Capsule 25 MG PO Q6H PRN PRN For Itching General Time Seen by MD: 08:30 Chief Complaint Vomiting Hx Obtained From: Patient Arrived By: Walk-in Sudden in Onset?: No Onset Occurred: 4 days ago Associated with: Reports: Abdominal pain, Diaphoresis Pertinent Negative: Pt denies other symptoms Similar Sx Previous: Yes Past Medical History Past Medical History Admit for N/V 11/2016 Admit for N/V 10/2016 -> mild gastritis/duodenitis, EGD results consistent with H. pylori. S/p treatment with triple therapy (clarithromycin, amoxicillin, Protonix) Bipolar /Schizophrenia frquent marijuana use Reports: Hypertension Past Surgical History EGD 10/2016 Smoking History Unknown if Ever Smoker Social History Alcohol Use: Denies alcohol use Drug Use: THC Other Social History: Good social support, , Local resident Ambulatory Status Independent Review of Systems Full Review of Systems Constitutional: Denies: Chills, Fever GI: Reports: Abdominal pain, Nausea, Vomiting, Denies: Bloody/tarry stool, Diarrhea, Hematemesis, Hematochezia, Melena Skin: Reports Diaphoresis Complete sys rev & neg: except as marked. Physical Exam Vital Signs Vital Signs Date Time Temp Pulse Resp B/P Pulse Ox O2 Delivery O2 Flow Rate FiO2 03/29/17 08:22 37.1 123 18 161/114 100 Initial VS: Reviewed Head / Eyes: Atraumatic, Normocephalic Neck: Supple, Non-tender, Full range of motion Extremities: Vascular intact, Neuro intact, No swelling, No tenderness Skin: Warm, Dry, No cyanosis Neurologic: Alert, Oriented, Nonfocal General/Constitutional: Awake, Alert, Well developed, Well nourished Distress / Hydration: Positive: Distress mild Respiratory / Chest: Breath sounds NL, No respiratory distress, No rales, No rhonchi, No wheezing Cardiovascular: Regular rhythm, No gallop, No murmurs, No rubs Heart Rate / Rhythm: Positive: Tachycardia Abdomen: Soft, No guarding, No rebound Tenderness/Guarding/Rebound: Positive: Tender epigastric Interpretation & Diagnostics Lab Results Interpretation Result Diagram: 03/29/17 0915 03/29/17 0915 Test 03/29/17 09:15 03/29/17 11:24 White Blood Count 11.5th/mm3 (3.8-10.1) Red Blood Count 5.15mil/mm3 (3.90-5.20) Hemoglobin 13.8g/dL (12.0-15.6) Hematocrit 41.2% (35.0-46.0) Mean Corpuscular Volume 80.0fL (81-100) Mean Corpuscular Hemoglobin 26.8pg (27.0-35.0) Mean Corpuscular Hemoglobin Concent 33.5% (32.0-37.0) Red Cell Distribution Width 14.9% (12.3-15.4) Platelet Count 375bil/L (150-400) Neutrophils (%) (Auto) 83.8% (40-74) Lymphocytes (%) (Auto) 9.3% (14-46) Monocytes (%) (Auto) 6.1% (4-12) Eosinophils (%) (Auto) 0.3% (0-5) Basophils (%) (Auto) 0.2% (0-3) Sodium Level 138mEq/L (134-144) Potassium Level 3.1mEq/L (3.5-5.2) Chloride Level 96mEq/L (97-108) Carbon Dioxide Level 23mmol/L (18-29) Blood Urea Nitrogen 24mg/dL (6-24) Creatinine 0.71mg/dL (0.57-1.00) Estimat Glomerular Filtration Rate 126mL/min (>59) Glucose Level 127mg/dL (60-99) Calcium Level 9.6mg/dL (8.5-10.1) Magnesium Level 2.2mg/dL (1.6-2.6) Total Bilirubin 0.8mg/dL (0.0-1.2) Aspartate Amino Transf (AST/SGOT) 20U/L (0-50) Alanine Aminotransferase (ALT/SGPT) 17U/L (0-32) Alkaline Phosphatase 60U/L (25-150) Total Protein 8.0g/dL (6.4-8.4) Albumin 4.7g/dL (3.4-5.0) Lipase 42U/L (13-60) Procedures Peripheral / EJ IV Start Time: 09:12 Procedure Performed by: ED physician Type of Catheter: Single lumen Size of Catheter: #20 # of Attempts: 1 IV Site: External jugular right Skin Preparation Agent: Hibiclens - Chlorhexidine Secured with: Tape Re-Eval/Medical Decision Med Decision/Clinical Course Recurrent nausea and vomiting I do not suspect any emergent medical condition. Symptoms of been controlled on the patient is tolerating oral intake. Will be discharged with Phenergan suppositories. Return and follow-up precautions given. Source of Hx: Old records Time of Eval: 09:12 Re-Evaluation/Progress Note: Started external jugular IV. Time of Eval: 10:06 Re-Evaluation/Progress Note: Patient is improved after medications. Discussed lab results and updated patient on the plan of care. Time of Eval: 10:47 Re-Evaluation/Progress Note: Provided supplies for PO trial. Time of Eval: 11:00 Re-Evaluation/Progress Note: PO trial passed. Discussed lab results and plan to discharge. Patient is amenable to the plan. Return precautions given. All other questions addressed. Counseled Regarding: Diagnosis, Lab results, Need for follow-up, When/why to return to ED Discharge & Departure Primary Impression: Nausea & vomiting Disposition: Home Discharge Condition All VS Reviewed: Yes Condition: Stable Additional Instructions: Take your home meds plus Phenergan suppositories for nausea and vomiting. Follow bland diet. Avoid alcohol, spicy foods, greasy foods, smoking or anything else except that your stomach. Follow-up with your regular doctor in the next few days as needed. Return to ER if worse. Referrals: Bolivar Norman MD (PCP) Scribe Attestation Portions of this note were transcribed by Greg Johnston. I, Dr. Nunez, personally performed the history, physical exam and medical decision-making; I reviewed and confirmed the accuracy of the information in the transcribed note. Signed by: Jose Mccray, 03/29/2017 at 11:51 copies to: Bolivar Norman MD, Timothy S DO March 29, 2017 08:30 GREG JOHNSTON March 29, 2017 09:00
[2017-03-29] MEDS ORDERED: Ketorolac 15 mg/mL Inj IVPUSH ONE (09:00)
[2017-03-29] MEDS ORDERED: Promethazine Inj 25 MG in 0.9% Sodium Chloride-Pha MIX 100 ML IV ONE (09:00)
[2017-03-29] MEDS ORDERED: 0.9% Sodium Chloride 1,000 ML IV ONE ×2 (09:00→11:05)
[2017-03-29] MEDS ORDERED: Ondansetron 2 mg/mL 2 mL Inj IVPUSH PRN (09:00)
[2017-03-29] MEDS ORDERED: Famotidine 10 mg/mL 2 mL Inj IVPUSH ONE (09:20)
[2017-03-29] MEDS ORDERED: LidocaineVisc 2%:Antacid 1:1 10 mL Syringe PO ONE (09:25)
[2017-03-29 09:30] LABS: BASOPHILS % (AUTO) 0.2 % (0-3); EOSINOPHILS % (AUTO) 0.3 % (0-5); MONOCYTES % (AUTO) 6.1 % (4-12); Mean Corpuscular Hemoglobin 26.8 pg (27.0-35.0); NEUTROPHILS % (AUTO) 83.8 % (40-74); Platelet Count 375 bil/L (150-400)
[2017-03-29 09:51] LABS: Magnesium 2.2 mg/dL (1.6-2.6)
[2017-03-29] MEDS ORDERED: PROM25SU47 RECTAL (11:46)
[2017-03-29 12:23] VITALS: BP 168/104; PULSE 118; RESP 16; O2SAT 98
== END 2017-03-29 12:24 | disposition home or self-care (01) ==
LOC: SED 08:19
DX: R11.2 Nausea with vomiting, unspecified (principal); I10 Essential (primary) hypertension; Z79.899 Other long term (current) drug therapy; Z88.5 Allergy status to narcotic agent; Z88.6 Allergy status to analgesic agent
CPT/HCPCS: 36415; 36556; 80053; 81025; 83690; 83735; 85025; 96361; 96374; 96375; 99285; J1885; J2405; J2550; J7030